=== PATIENT | male | born 1945 | race Two or more races ===

== ENCOUNTER → 2024-02-29 | Outpatient (CLI) | payer MEDICARE, MEDICAID, SELFPAY ==
[2024-02-29 15:22] LABS: Albumin, Serum 4.5 gm/dL (3.4-4.8); Anion Gap 7 (7-16); BUN/Creatinine Ratio 13 Ratio (12-20); Blood Urea Nitrogen 27 mg/dL (9-23); Calcium 9.7 mg/dL (8.3-10.6); Calcium (Corrected) 9.7 mg/dL (8.5-10.1); Carbon Dioxide 26.2 mMol/L (20.0-31.0); Chloride 95 mMol/L (98-107); Creatinine (Component) 2.1 mg/dL (0.6-1.3); Glucose 252 mg/dL (74-106); Osmolality,Calculated 271 (275-295); Phosphorous 3.7 mg/dL (2.4-5.1); Potassium 4.5 mMol/L (3.4-5.1); Sodium 128 mMol/L (136-145); eGFR 31 See Note
== END | disposition home or self-care (01) ==
LOC: COPL 14:21
PROVIDERS: PCP Family Medicine; Referring Provider Family Medicine; Visit Provider Family Medicine
DX: Z13.1 Encounter for screening for diabetes mellitus (principal)
CPT/HCPCS: 36415; 80069

== ENCOUNTER → 2024-03-07 | Outpatient (CLI) | payer MEDICARE, MEDICAID, SELFPAY ==
[2024-03-07 18:11] LABS: Albumin, Serum 4.6 gm/dL (3.4-4.8); Anion Gap 6 (7-16); BUN/Creatinine Ratio 11 Ratio (12-20); Blood Urea Nitrogen 20 mg/dL (9-23); Calcium 9.7 mg/dL (8.3-10.6); Calcium (Corrected) 9.7 mg/dL (8.5-10.1); Carbon Dioxide 25.3 mMol/L (20.0-31.0); Chloride 100 mMol/L (98-107); Creatinine (Component) 1.9 mg/dL (0.6-1.3); Free T4 (Free Thyroxine) 1.24 ng/dL (0.89-1.76); Glucose 343 mg/dL (74-106); Osmolality,Calculated 279 (275-295); Phosphorous 2.6 mg/dL (2.4-5.1); Potassium 4.6 mMol/L (3.4-5.1); Sodium 131 mMol/L (136-145); Thyroid Stimulating Hormone 3.67 uIU/mL (0.55-4.78); eGFR 35 See Note
[2024-03-15 13:33] LABS: ACTH, Plasma* 8 pg/mL (6-50)
== END | disposition home or self-care (01) ==
PROVIDERS: PCP Family Medicine; Referring Provider Family Medicine; Visit Provider Family Medicine
DX: E87.1 Hypo-osmolality and hyponatremia (principal); E03.2 Hypothyroidism due to medicaments and other exogenous substances
CPT/HCPCS: 36415; 80069; 82024; 84439; 84443

== ENCOUNTER → 2024-04-21 | Outpatient (CLI) | payer MEDICARE, MEDICAID, SELFPAY ==
--- NOTE | 2024-04-21 14:30 | XR_ITS ---
Examination: CT brain head without contrast. 2-D sagittal coronal reconstructions Date and time of exam:April 21, 2024 1449 hours Comparison February 25, 2024 INDICATIONS: Onset weakness ataxia 2 months CTDI: vol (mGy):47.8 DLP: (mGycm):915 Technique: Multiple CT axial sections of the brain have been obtained, 5 mm slice thickness. Contrast has not been administered. 2-D sagittal, coronal reconstructions have been obtained Low dose protocols were performed. One or more of the following dose reduction techniques were used; automated exposure control, adjustment of the mA and/or KV according to patient size, use of iterative reconstruction technique. Findings: No significant ventricular enlargement. 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 No mass effect or midline shift Basal cisterns are not remarkable. Fourth ventricle is midline. Cranial vault intact. Impression: Negative for acute hemorrhage, mass effect or midline shift If symptoms persist, consider brain MRI follow-up
== END | disposition home or self-care (01) ==
LOC: CCTX 14:27
PROVIDERS: PCP Family Medicine; Referring Provider Family Medicine; Visit Provider Family Medicine
DX: R26.89 Other abnormalities of gait and mobility (principal)
CPT/HCPCS: 70450

== ENCOUNTER → 2024-04-24 | Outpatient (CLI) | payer MEDICARE, MEDICAID, SELFPAY ==
--- NOTE | 2024-04-24 15:45 | XR_ITS ---
Examination: Abdomen sonogram, complete Date and time of exam: April 24, 2024 1612 hrs. Indications: Epigastric pain beginning one week ago. Technique: Multiple real-time grayscale transabdominal sonographic images of the abdomen have been obtained. Findings: Normal gallbladder Normal common bile duct 0.4 cm Pancreas obscured by bowel gas Mid distal aorta visualized not enlarged Liver 14.1 cm Normal hepatopedal portal venous flow Patent IVC Right kidney 10.2 x 3.8 x 3.7 cm renal cortex 1.1 cm Left kidney 9.2 x 4.1 x 3.5 cm renal cortex 1.5 cm Moderate bilateral renal parenchymal scar formation No hydronephrosis Spleen 8.2 cm Impression: Normal gallbladder Bilateral renal cortical thinning Moderate bilateral renal parenchymal scar formation
== END | disposition home or self-care (01) ==
LOC: CDIM 15:36
PROVIDERS: PCP Family Medicine; Referring Provider Family Medicine; Visit Provider Family Medicine
DX: N28.89 Other specified disorders of kidney and ureter (principal)
CPT/HCPCS: 76700

== ENCOUNTER → 2024-05-25 | Outpatient (CLI) | payer MEDICARE, MEDICAID, SELFPAY ==
--- NOTE | 2024-05-25 | XR_ITS ---
Examination: Abdomen AP single view Technique: AP portable supine abdomen, single view Exam date and time: May 25, 2024 1243 hours INDICATIONS: Abdominal pain and nausea beginning 3 days ago. FINDINGS: Moderate stool throughout the colon No obstruction No free air Moderate bilateral hip osteoarthritis IMPRESSION: Moderate stool throughout the colon
== END | disposition home or self-care (01) ==
PROVIDERS: PCP Family Medicine; Referring Provider Family Medicine; Visit Provider Family Medicine
DX: K59.00 Constipation, unspecified (principal)
CPT/HCPCS: 74018

== ENCOUNTER → 2024-06-02 | Outpatient (CLI) | payer MEDICARE, MEDICAID, SELFPAY ==
[2024-06-02 09:40] LABS: Glucose Estimated Average 226 mg/dL (80-131); Hemoglobin A1C 9.5 % Hgb (4.8-6.0)
[2024-06-02 10:03] LABS: Alanine Aminotransferase 10 U/L (10-49); Albumin, Serum 4.2 gm/dL (3.4-4.8); Albumin/Globulin Ratio 1.8 (1.2-2.2); Alkaline Phosphatase 69 U/L (46-116); Anion Gap 11 (7-16); Aspartate Amino Transferase 18 U/L (0-34); BUN/Creatinine Ratio 7 Ratio (12-20); Bilirubin,Total 0.5 mg/dL (0.3-1.2); Blood Urea Nitrogen 12 mg/dL (9-23); Calcium 9.5 mg/dL (8.3-10.6); Calcium (Corrected) 9.5 mg/dL (8.5-10.1); Carbon Dioxide 26.5 mMol/L (20.0-31.0); Chloride 95 mMol/L (98-107); Cholesterol 166 mg/dL (132-200); Creatinine (Component) 1.8 mg/dL (0.6-1.3); Free T4 (Free Thyroxine) 1.55 ng/dL (0.89-1.76); Globulin 2.3 gm/dL (2.3-3.5); Glucose 164 mg/dL (74-106); HDL Cholesterol 56 mg/dL (40-60); LDL Cholesterol,Calculated 73 mg/dL (0-130); Osmolality,Calculated 268 (275-295); Potassium 4.4 mMol/L (3.4-5.1); Sodium 132 mMol/L (136-145); Thyroid Stimulating Hormone 6.03 uIU/mL (0.55-4.78); Total Protein 6.5 gm/dL (5.7-8.2); Triglycerides 185 mg/dL (30-150); eGFR 38 See Note
[2024-06-02 11:11] LABS: Creatinine MALB Rnd Ur 236 mg/dL (30-125); Microalbumin Creat Ratio 73 mg/gCrea (<30); Microalbumin, Random Urine 172 mg/L (0-300)
== END | disposition home or self-care (01) ==
LOC: COPL 08:11
PROVIDERS: PCP Family Medicine; Referring Provider Family Medicine; Visit Provider Family Medicine
DX: E11.65 Type 2 diabetes mellitus with hyperglycemia (principal); E78.1 Pure hyperglyceridemia; E03.2 Hypothyroidism due to medicaments and other exogenous substances
CPT/HCPCS: 36415; 80053; 80061; 82043; 82570; 83036; 84439; 84443

== ENCOUNTER → 2024-08-15 | Outpatient (CLI) | payer MEDICARE, MEDICAID, SELFPAY ==
[2024-08-15 10:19] LABS: Free T4 (Free Thyroxine) 1.23 ng/dL (0.89-1.76); Thyroid Stimulating Hormone 4.16 uIU/mL (0.55-4.78)
== END | disposition home or self-care (01) ==
LOC: COPL 09:18
PROVIDERS: PCP Family Medicine; Referring Provider Family Medicine; Visit Provider Family Medicine
DX: E03.2 Hypothyroidism due to medicaments and other exogenous substances (principal)
CPT/HCPCS: 36415; 84439; 84443

== ENCOUNTER → 2025-01-18 | Outpatient (CLI) | payer MEDICARE, MEDICAID, SELFPAY ==
[2025-01-18 09:57] LABS: Glucose Estimated Average 243 mg/dL (80-131); Hemoglobin A1C 10.1 % Hgb (4.8-6.0)
[2025-01-18 10:08] LABS: Prostate Specific Antigen 0.63 ng/mL (0-4.00)
[2025-01-18 10:20] LABS: Alanine Aminotransferase < 7 U/L (10-49); Albumin, Serum 4.4 gm/dL (3.4-4.8); Albumin/Globulin Ratio 1.9 (1.2-2.2); Alkaline Phosphatase 75 U/L (46-116); Anion Gap 10 (7-16); Aspartate Amino Transferase 14 U/L (0-34); BUN/Creatinine Ratio 11 Ratio (12-20); Bilirubin,Total 0.5 mg/dL (0.3-1.2); Blood Urea Nitrogen 19 mg/dL (9-23); Calcium 9.8 mg/dL (8.3-10.6); Calcium (Corrected) 9.8 mg/dL (8.5-10.1); Carbon Dioxide 27.6 mMol/L (20.0-31.0); Cardiac Risk Estimate 3.6 RATIO (4.0-6.7); Chloride 104 mMol/L (98-107); Cholesterol 192 mg/dL (132-200); Creatinine (Component) 1.7 mg/dL (0.6-1.3); Free T4 (Free Thyroxine) 1.44 ng/dL (0.89-1.76); Globulin 2.3 gm/dL (2.3-3.5); Glucose 166 mg/dL (74-106); HDL Cholesterol 53 mg/dL (40-60); LDL Cholesterol,Calculated 104 mg/dL (0-130); Osmolality,Calculated 289 (275-295); Potassium 5.4 mMol/L (3.4-5.1); Sodium 142 mMol/L (136-145); Thyroid Stimulating Hormone 2.77 uIU/mL (0.55-4.78); Total Protein 6.7 gm/dL (5.7-8.2); Triglycerides 175 mg/dL (30-150); eGFR 40 See Note
[2025-01-18 10:21] LABS: Creatinine MALB Rnd Ur 87 mg/dL (30-125); Microalbumin Creat Ratio 80 mg/gCrea (<30); Microalbumin, Random Urine 70 mg/L (0-300)
== END | disposition home or self-care (01) ==
LOC: COPL 08:48
PROVIDERS: PCP Family Medicine; Referring Provider Family Medicine; Visit Provider Family Medicine
DX: N42.9 Disorder of prostate, unspecified (principal); E11.65 Type 2 diabetes mellitus with hyperglycemia; E78.1 Pure hyperglyceridemia; E03.2 Hypothyroidism due to medicaments and other exogenous substances
CPT/HCPCS: 36415; 80053; 80061; 82043; 82570; 83036; 84153; 84439; 84443

== ENCOUNTER → 2025-02-07 | Outpatient (CLI) | payer MEDICARE, MEDICAID, SELFPAY ==
[2025-02-07 13:00] LABS: Albumin, Serum 4.3 gm/dL (3.4-4.8); Anion Gap 13 (7-16); BUN/Creatinine Ratio 13 Ratio (12-20); Blood Urea Nitrogen 23 mg/dL (9-23); Calcium 9.2 mg/dL (8.3-10.6); Calcium (Corrected) 9.2 mg/dL (8.5-10.1); Carbon Dioxide 24.4 mMol/L (20.0-31.0); Chloride 101 mMol/L (98-107); Creatinine (Component) 1.8 mg/dL (0.6-1.3); Glucose 356 mg/dL (74-106); Osmolality,Calculated 293 (275-295); Phosphorous 3.6 mg/dL (2.4-5.1); Potassium 4.8 mMol/L (3.4-5.1); Sodium 138 mMol/L (136-145); eGFR 38 See Note
== END | disposition home or self-care (01) ==
LOC: COPL 11:21
PROVIDERS: PCP Family Medicine; Referring Provider Family Medicine; Visit Provider Family Medicine
DX: Z13.1 Encounter for screening for diabetes mellitus (principal)
CPT/HCPCS: 36415; 80069

== ENCOUNTER → 2025-03-09 | Outpatient (CLI) | payer MEDICARE, MEDICAID, SELFPAY ==
[2025-03-09 12:16] LABS: Albumin, Serum 4.4 gm/dL (3.4-4.8); Anion Gap 12 (7-16); BUN/Creatinine Ratio 12 Ratio (12-20); Blood Urea Nitrogen 23 mg/dL (9-23); Calcium 9.3 mg/dL (8.3-10.6); Calcium (Corrected) 9.3 mg/dL (8.5-10.1); Carbon Dioxide 24.4 mMol/L (20.0-31.0); Chloride 102 mMol/L (98-107); Creatinine (Component) 2.0 mg/dL (0.6-1.3); Glucose 220 mg/dL (74-106); Osmolality,Calculated 286 (275-295); Phosphorous 3.2 mg/dL (2.4-5.1); Potassium 4.5 mMol/L (3.4-5.1); Sodium 138 mMol/L (136-145); eGFR 33 See Note
== END | disposition home or self-care (01) ==
LOC: COPL 10:09
PROVIDERS: PCP Family Medicine; Referring Provider Family Medicine; Visit Provider Family Medicine
DX: Z13.1 Encounter for screening for diabetes mellitus (principal)
CPT/HCPCS: 36415; 80069